=== PATIENT | female | born 1995 | race Hispanic/Latino ===

== ENCOUNTER 2017-09-23 07:44 | Emergency (ER) | payer OTHER ==
[~2017-09-23] VITALS: Ht 157.5 cm; Wt 54.4 kg
[2017-09-23] MEDS ORDERED: PREDNISONE 20 MG TAB PO ONE (08:15)
[2017-09-23] MEDS ORDERED: EPINEPHRINE HCL INJ 1 MG/ML AMP IM ONE (08:15)
[2017-09-23] MEDS ORDERED: PREDNISONE20 MG PO (10:33)
[2017-09-23] MEDS ORDERED: EPINEPHRIN0.3 MG/0.3 IM (10:33)
[2017-09-23 10:48] VITALS: BP 128/75
== END 2017-09-23 10:52 | disposition home or self-care (01) ==
LOC: FSED 07:44
DX: T78.3XXA Angioneurotic edema, initial encounter (principal); L50.0 Allergic urticaria
CPT/HCPCS: 99283; J0171